=== PATIENT | female | born 2000 | race Two or more races ===

== ENCOUNTER 2024-05-09 14:29 | Emergency (ER) | payer OTHER ==
[~2024-05-09] VITALS: Ht 152.4 cm; Wt 70.3 kg
[~2024-05-09 14:29] MED LIST: PRENATAL + DHA1 EAC1 PO; PROMETRIUM200 MG PO
[2024-05-09] MEDS ORDERED: METHYLPREDNISOLONE SOD SUCC 40 MG VIAL IM ONE (16:30)
[2024-05-09] MEDS ORDERED: CEFTRIAXONE SODIUM 2,000 MG VIAL IM ONE (16:30)
[2024-05-09] MEDS ORDERED: METHYLPREDNISOLONE SOD SUCC 40 MG VIAL ONE (16:47)
[2024-05-09] MEDS ORDERED: CEFTRIAXONE SODIUM 2,000 MG VIAL ONE (16:47)
[2024-05-09] MEDS ORDERED: LIDOCAINE HCL 1% 10ML VIAL ONE (16:51)
[2024-05-09 17:09] LABS: URINE APPEARANCE Cloudy; URINE BILIRRUBIN Negative (NEGATIVE); URINE BLOOD Trace; URINE COLOR Yellow; URINE GLUCOSE Negative (NEGATIVE); URINE LEUKOCYTE Small; URINE NITRATE Negative; URINE PROTEIN 30 (NEGATIVE)
[2024-05-09 17:12] LABS: URINE BACTERIA 811.3 uL (0.0-1933); URINE EPITHELIAL CELLS 15.7 uL (0.0-38.8); URINE RBC 38.7 uL (0.0-20.8); URINE WBC 119.4 uL (0.0-23.2)
== END 2024-05-09 18:23 | disposition home or self-care (01) ==
LOC: ER 14:30
PROVIDERS: General Practice
DX: R32 Unspecified urinary incontinence (principal); N39.0 Urinary tract infection, site not specified